=== PATIENT | male | born 1935 | race Caucasian/White ===

== ENCOUNTER → 2016-06-19 | Day surgery (SDC) | payer MEDICARE, BC ==
[~2016-06-19] MED LIST: LIDOCAINE HCL 1% MPF SOL ONE; TRIAMCINOLONE ACETONIDE 40 MG/ML SUS ONE
[2016-06-19 12:56] VITALS: PULSE 58; RESP 18
[2016-06-19 13:53] VITALS: BP 143/79; TEMP 97.4; O2SAT 93
== END | disposition home or self-care (01) | DRG 552 ==
LOC: SURG 12:16
PROVIDERS: ATTEND Nurse Anesthetist, Certified Registered
DX: M48.06 Spinal stenosis, lumbar region (principal)
CPT/HCPCS: J2001; J3300

== ENCOUNTER 2016-09-12 12:38 | Inpatient (IN) | payer MEDICARE, BC ==
[2016-09-12] MEDS ORDERED: ALBUTEROL NEB SOL 2.5MG/3ML 1 VIAL SOL NEB PRN (13:25)
[2016-09-12] MEDS: ALBUTEROL/IPRATROPIUM 1 VIAL SOL INH SCH ×2 (14:43→21:20)
[2016-09-12] MEDS: SOLUMEDROL 125 MG/2 ML 125 MG/2 ML PDS IV SCH ×2 (14:44→21:20)
[2016-09-12] MEDS: SODIUM CHLORIDE 0.9% FLUSH 10 ML SOL IV SCH ×3 (14:44→22:57)
[2016-09-12] MEDS: ENOXAPARIN 40 MG SOL SC SCH (15:32)
[2016-09-12] MEDS: AZITHROMYCIN 250 MG TAB PO SCH (15:32)
[2016-09-12] MEDS ORDERED: FUROSEMIDE 40 MG TAB PO SCH (21:00)
[2016-09-12] MEDS: METOPROLOL SUCCINATE 50 MG ER TAB PO SCH (21:21)
[2016-09-12] MEDS: LISINOPRIL 5 MG TAB PO SCH (21:21)
[2016-09-13] MEDS: ALBUTEROL/IPRATROPIUM 1 VIAL SOL INH SCH ×4 (02:26→20:46)
[2016-09-13] MEDS: SOLUMEDROL 125 MG/2 ML 125 MG/2 ML PDS IV SCH ×2 (02:26→08:34)
[2016-09-13] MEDS: SODIUM CHLORIDE 0.9% FLUSH 10 ML SOL IV SCH ×5 (02:28→22:26)
[2016-09-13 08:02] LABS: HEMATOCRIT 35 % (39-53); MEAN CORPUSCULAR HGB CONC 34.5 gm/dl (32.0-36.0)
[2016-09-13 08:04] LABS: CALCIUM 8.6 mg/dl (8.5-10.1); POTASSIUM 4.6 mMol/L (3.5-5.1)
[2016-09-13 08:11] LABS: MEAN CORPUSCULAR VOLUME 99 fL (80-100)
[2016-09-13] MEDS: ENOXAPARIN 40 MG SOL SC SCH (08:34)
[2016-09-13] MEDS: AZITHROMYCIN 250 MG TAB PO SCH (08:34)
[2016-09-13] MEDS: MULTIVITAMIN2 1 EA TAB PO SCH (08:35)
[2016-09-13] MEDS: POTASSIUM CHLORIDE 10 MEQ TER PO SCH (08:35)
[2016-09-13] MEDS: ALLOPURINOL 100 MG TAB PO SCH (08:35)
[2016-09-13] MEDS: ASPIRIN EC 81 MG PO SCH (08:35)
[2016-09-13 08:48] LABS: BASOPHILS % (MANUAL) 0 % (0-3); EOSINOPHILS % (MANUAL) 0 % (0-9); LYMPHOCYTES % (MANUAL) 11 % (10-50)
[2016-09-13 08:49] LABS: ANISOCYTOSIS SLIGHT AMT
[2016-09-13] MEDS ORDERED: DOCUSATE SODIUM 50 MG PO SCH (09:00)
[2016-09-13] MEDS ORDERED: FUROSEMIDE 40 MG TAB PO SCH (09:00)
[2016-09-13] MEDS: METOPROLOL SUCCINATE 50 MG ER TAB PO SCH (10:07)
[2016-09-13] MEDS: AMIODARONE 200 MG TAB PO SCH (10:07)
[2016-09-13] MEDS: LISINOPRIL 5 MG TAB PO SCH (10:07)
[2016-09-13] MEDS: PREDNISONE 20 MG TAB PO SCH (11:07)
[2016-09-13] MEDS: FUROSEMIDE 80 MG TAB PO SCH ×2 (11:07→15:02)
[2016-09-13] MEDS: DOCUSATE SODIUM 100 MG SGL PO SCH (11:11)
[2016-09-13] MEDS: ATORVASTATIN CALCIUM 80 MG TAB PO SCH (18:59)
[2016-09-14] MEDS: ALBUTEROL/IPRATROPIUM 1 VIAL SOL INH SCH ×4 (02:30→18:57)
[2016-09-14] MEDS: SODIUM CHLORIDE 0.9% FLUSH 10 ML SOL IV SCH ×2 (05:45→13:56)
[2016-09-14] MEDS: ASPIRIN EC 81 MG PO SCH (08:03)
[2016-09-14] MEDS: AMIODARONE 200 MG TAB PO SCH (08:04)
[2016-09-14] MEDS: FUROSEMIDE 80 MG TAB PO SCH ×2 (08:05→13:54)
[2016-09-14] MEDS: DOCUSATE SODIUM 100 MG SGL PO SCH (08:05)
[2016-09-14] MEDS: PREDNISONE 20 MG TAB PO SCH (08:05)
[2016-09-14] MEDS: POTASSIUM CHLORIDE 10 MEQ TER PO SCH (08:05)
[2016-09-14] MEDS: MULTIVITAMIN2 1 EA TAB PO SCH (08:05)
[2016-09-14] MEDS: METOPROLOL SUCCINATE 50 MG ER TAB PO SCH (08:06)
[2016-09-14] MEDS: LISINOPRIL 5 MG TAB PO SCH (08:06)
[2016-09-14] MEDS: AZITHROMYCIN 250 MG TAB PO SCH (08:06)
[2016-09-14] MEDS: ALLOPURINOL 100 MG TAB PO SCH (08:07)
[2016-09-14] MEDS: ENOXAPARIN 40 MG SOL SC SCH (08:08)
[2016-09-14 08:35] LABS: CALCIUM 8.8 mg/dl (8.5-10.1); POTASSIUM 4.1 mMol/L (3.5-5.1)
[2016-09-14 17:17] VITALS: BP 108/74; TEMP 98
[2016-09-14] MEDS: ATORVASTATIN CALCIUM 80 MG TAB PO SCH (17:18)
[2016-09-14 18:56] VITALS: O2SAT 92
[2016-09-14 18:58] VITALS: PULSE 78; RESP 26
== END 2016-09-14 19:40 | disposition home or self-care (01) | DRG 202 ==
LOC: ACUTE CARE 12:39
PROVIDERS: ADMIT Family Medicine; ATTEND Family Medicine
DX: J45.901 Unspecified asthma with (acute) exacerbation (principal); N17.9 Acute kidney failure, unspecified; G47.36 Sleep related hypoventilation in conditions classified elsewhere; I50.9 Heart failure, unspecified; I13.0 Hypertensive heart and chronic kidney disease with heart failure and stage 1 through stage 4 chronic kidney disease, or unspecified chronic kidney disease; N18.9 Chronic kidney disease, unspecified
CPT/HCPCS: 36415; 80048; 80053; 85007; 85027; 94150; 94640; 94664; 94760; J1650; J2930; J7620

== ENCOUNTER 2016-09-17 08:52 | Inpatient (IN) | payer MEDICARE, BC ==
[2016-09-17] MEDS ORDERED: ALBUTEROL/IPRATROPIUM 1 VIAL SOL INH ONE (09:30)
[2016-09-17 09:40] LABS: HEMATOCRIT 42 % (39-53); MEAN CORPUSCULAR HGB CONC 34.1 gm/dl (32.0-36.0)
[2016-09-17 09:44] LABS: MEAN CORPUSCULAR VOLUME 100 fL (80-100)
[2016-09-17] MEDS ORDERED: ALBUTEROL/IPRATROPIUM 1 VIAL SOL ONE (09:49)
[2016-09-17 09:51] LABS: ALBUMIN 3.4 gm/dl (3.4-5.0); CALCIUM 8.7 mg/dl (8.5-10.1); POTASSIUM 3.6 mMol/L (3.5-5.1)
[2016-09-17 09:52] LABS: BASOPHILS % (MANUAL) 0 % (0-3); EOSINOPHILS % (MANUAL) 0 % (0-9); LYMPHOCYTES % (MANUAL) 8 % (10-50); NORMAL RBCS PRESENT
[2016-09-17] MEDS ORDERED: PIPERACILLIN/TAZOBACT 3.375 GM PDS IV ONE ×3 (10:48→22:48)
[2016-09-17] MEDS: PIPERACILLIN/TAZOBACT 3.375 GM 3.375 GM in SODIUM CHLORIDE 0.9% 100 ML 100 ML IV SCH ×3 (11:00→22:56)
[2016-09-17] MEDS ORDERED: ALBUTEROL NEB SOL 2.5MG/3ML 1 VIAL SOL NEB PRN (11:24)
[2016-09-17 11:57] LABS: APPEARANCE,URINE Slightly Cloudy; BILIRUBIN,URINE NEGATIVE (NEGATIVE); COLOR,URINE Yellow; GLUCOSE, URINE (UA) NEGATIVE (NEGATIVE); KETONES,URINE NEGATIVE (NEGATIVE); LEUKOCYTE ESTERASE ,URINE NEGATIVE (NEGATIVE); NITRATE,URINE NEGATIVE (NEGATIVE); OCCULT BLOOD,URINE NEGATIVE (NEG-TRACE); PH,URINE 5.5; UROBILINOGEN,URINE 0.2 (0.2-1.0 EU)
[2016-09-17 12:00] LABS: RBC,URINE NEG (0-3AV/HPF)
[2016-09-17 12:01] LABS: WBC,URINE 0-2 (0-5AV/HPF)
[2016-09-17] MEDS: ALBUTEROL/IPRATROPIUM 1 VIAL SOL INH SCH ×3 (12:47→23:34)
[2016-09-17] MEDS ORDERED: SODIUM CHLORIDE 0.9% 100 ML 100 ML IV ONE ×2 (17:11→22:48)
[2016-09-17] MEDS: ATORVASTATIN CALCIUM 80 MG TAB PO SCH (18:11)
[2016-09-17] MEDS: METOPROLOL SUCCINATE 50 MG ER TAB PO SCH (20:52)
[2016-09-17] MEDS ORDERED: FUROSEMIDE 80 MG TAB PO SCH (21:00)
[2016-09-17] MEDS: SODIUM CHLORIDE 0.9% FLUSH 10 ML SOL IV SCH (23:34)
[2016-09-18] MEDS ORDERED: PIPERACILLIN/TAZOBACT 3.375 GM PDS IV ONE (05:48)
[2016-09-18] MEDS ORDERED: SODIUM CHLORIDE 0.9% 100 ML 100 ML IV ONE (05:48)
[2016-09-18] MEDS: PIPERACILLIN/TAZOBACT 3.375 GM 3.375 GM in SODIUM CHLORIDE 0.9% 100 ML 100 ML IV SCH (05:58)
[2016-09-18] MEDS: SODIUM CHLORIDE 0.9% FLUSH 10 ML SOL IV SCH ×3 (05:59→21:36)
[2016-09-18] MEDS: ALBUTEROL/IPRATROPIUM 1 VIAL SOL INH SCH ×3 (05:59→18:09)
[2016-09-18 07:24] LABS: CALCIUM 7.9 mg/dl (8.5-10.1)
[2016-09-18 07:37] LABS: BASOPHILS % (AUTO) 0 % (0-3); EOSINOPHILS % (AUTO) 3 % (0-9); HEMATOCRIT 35 % (39-53); NEUTROPHILS % (AUTO) 73.1 % (37-80)
[2016-09-18 07:40] LABS: MEAN CORPUSCULAR VOLUME 99 fL (80-100)
[2016-09-18] MEDS: AMIODARONE 200 MG TAB PO SCH (08:30)
[2016-09-18] MEDS: FUROSEMIDE 80 MG TAB PO SCH ×2 (08:31→13:28)
[2016-09-18] MEDS: ASPIRIN EC 81 MG PO SCH (08:31)
[2016-09-18] MEDS: ALLOPURINOL 100 MG TAB PO SCH (08:32)
[2016-09-18] MEDS: PREDNISONE 20 MG TAB PO SCH (08:34)
[2016-09-18] MEDS ORDERED: BUDESONIDE/FORMOTEROL 160/4.5 AER INH SCH (09:00)
[2016-09-18] MEDS ORDERED: DOCUSATE SODIUM 100 MG SGL PO SCH (09:00)
[2016-09-18] MEDS ORDERED: POTASSIUM CHLORIDE 10 MEQ TER PO SCH (09:00)
[2016-09-18] MEDS: METOPROLOL SUCCINATE 50 MG ER TAB PO SCH ×2 (09:15→10:09)
[2016-09-18] MEDS: AMOXIL/CLAVULANATE 400/5 ML PDR PO SCH ×2 (10:16→21:35)
[2016-09-18] MEDS: ATORVASTATIN CALCIUM 80 MG TAB PO SCH (18:08)
[2016-09-18] MEDS ORDERED: TAMSULOSIN HYDROCHLORIDE 0.4 MG CAP PO SCH (21:00)
[2016-09-18] MEDS: POTASSIUM CHLORIDE 10 MEQ TER PO SCH (21:35)
[2016-09-18] MEDS: BUDESONIDE/FORMOTEROL 160/4.5 AER INH SCH (21:36)
[2016-09-19] MEDS: ALBUTEROL/IPRATROPIUM 1 VIAL SOL INH SCH ×3 (00:58→11:44)
[2016-09-19] MEDS: SODIUM CHLORIDE 0.9% FLUSH 10 ML SOL IV SCH (06:35)
[2016-09-19 07:17] LABS: POTASSIUM 3.2 mMol/L (3.5-5.1)
[2016-09-19] MEDS: AMIODARONE 200 MG TAB PO SCH (08:23)
[2016-09-19] MEDS: ASPIRIN EC 81 MG PO SCH (08:24)
[2016-09-19] MEDS: PREDNISONE 20 MG TAB PO SCH (08:25)
[2016-09-19] MEDS: FUROSEMIDE 80 MG TAB PO SCH ×2 (08:25→13:21)
[2016-09-19] MEDS: METOPROLOL SUCCINATE 50 MG ER TAB PO SCH (08:26)
[2016-09-19] MEDS: BUDESONIDE/FORMOTEROL 160/4.5 AER INH SCH (08:27)
[2016-09-19] MEDS: POTASSIUM CHLORIDE 10 MEQ TER PO SCH (08:27)
[2016-09-19] MEDS: AMOXIL/CLAVULANATE 400/5 ML PDR PO SCH (08:28)
[2016-09-19] MEDS: ALLOPURINOL 100 MG TAB PO SCH (08:32)
[2016-09-19 10:32] VITALS: BP 117/64; TEMP 97
[2016-09-19 11:58] VITALS: PULSE 81; RESP 16; O2SAT 97
== END 2016-09-19 13:25 | disposition home or self-care (01) | DRG 190 ==
LOC: ED 08:52 → ACUTE CARE 10:50 → UNDOADMIN 10:50 → ACUTE CARE 11:43
PROVIDERS: ADMIT Family Medicine; ATTEND Family Medicine
PROC: 0T9B70Z Drainage of Bladder with Drainage Device, Via Natural or Artificial Opening (ICD-10-PCS; principal; 2016-09-18)
DX: R06.02 Shortness of breath (principal); J44.1 Chronic obstructive pulmonary disease with (acute) exacerbation; J44.9 Chronic obstructive pulmonary disease, unspecified; J18.9 Pneumonia, unspecified organism; N17.9 Acute kidney failure, unspecified; I13.0 Hypertensive heart and chronic kidney disease with heart failure and stage 1 through stage 4 chronic kidney disease, or unspecified chronic kidney disease; I50.9 Heart failure, unspecified; N18.3 Chronic kidney disease, stage 3 (moderate); J44.0 Chronic obstructive pulmonary disease with (acute) lower respiratory infection; R33.9 Retention of urine, unspecified; E78.5 Hyperlipidemia, unspecified; I25.10 Atherosclerotic heart disease of native coronary artery without angina pectoris; E87.6 Hypokalemia
CPT/HCPCS: 36415; 51798; 71020; 80048; 80053; 81001; 82565; 83880; 84132; 84484; 85007; 85025; 85027; 87040; 87070; 87205; 93005; 94150; 94640; 96365; 99222; 99291; J2543; J7620

== ENCOUNTER 2017-05-05 05:35 | Emergency (ER) | payer MEDICARE, BC ==
[2017-05-05] MEDS ORDERED: NITROGLYCERIN 0.4 MG TAB SL PRN (05:50)
[2017-05-05] MEDS ORDERED: ASPIRIN 81 MG CHEWABLE CTB PO STA (05:50)
[2017-05-05] MEDS ORDERED: SODIUM CHLORIDE 0.9% FLUSH 10 ML SOL IV PRN (05:50)
[2017-05-05 05:59] LABS: HEMATOCRIT 51 % (39-53); MEAN CORPUSCULAR HGB CONC 32.7 gm/dl (32.0-36.0); MEAN CORPUSCULAR VOLUME 95 fL (80-100)
[2017-05-05 06:11] LABS: CALCIUM 8.9 mg/dl (8.5-10.1); POTASSIUM 3.7 mMol/L (3.5-5.1)
[2017-05-05 06:14] LABS: BASOPHILS % (MANUAL) 0 % (0-3); EOSINOPHILS % (MANUAL) 0 % (0-9); LYMPHOCYTES % (MANUAL) 11 % (10-50); NORMAL RBCS PRESENT
[2017-05-05 06:38] VITALS: TEMP 98.4
[2017-05-05] MEDS ORDERED: ALBUTEROL/IPRATROPIUM 1 VIAL SOL INH ONE (06:47)
[2017-05-05] MEDS ORDERED: SOLUMEDROL 125 MG/2 ML 125 MG/2 ML PDS IV ONE (06:47)
[2017-05-05] MEDS ORDERED: ALBUTEROL/IPRATROPIUM 1 VIAL SOL ONE (06:49)
[2017-05-05] MEDS ORDERED: SOLUMEDROL 125 MG/2 ML 125 MG/2 ML PDS ONE (06:49)
[2017-05-05] MEDS ORDERED: ONDANSETRON HCL 4 MG/2 ML SOL IV ONE (06:50)
[2017-05-05] MEDS ORDERED: ONDANSETRON HCL 4 MG/2 ML SOL ONE (07:03)
[2017-05-05] MEDS ORDERED: SODIUM CHLORIDE 0.9% 500 ML 500 ML IV ONE ×2 (07:24→08:59)
[2017-05-05 08:37] LABS: APPEARANCE,URINE Clear; BILIRUBIN,URINE NEGATIVE (NEGATIVE); COLOR,URINE Yellow; GLUCOSE, URINE (UA) NEGATIVE (NEGATIVE); KETONES,URINE NEGATIVE (NEGATIVE); LEUKOCYTE ESTERASE ,URINE TRACE (NEGATIVE); NITRATE,URINE NEGATIVE (NEGATIVE); OCCULT BLOOD,URINE NEGATIVE (NEG-TRACE); PH,URINE 5.5; UROBILINOGEN,URINE 0.2 (0.2-1.0 EU)
[2017-05-05 09:03] LABS: RBC,URINE NEG (0-3AV/HPF); WBC,URINE 0-2 (0-5AV/HPF)
[2017-05-05] MEDS ORDERED: VANCOMYCIN HCL 500 MG PDS 1,000 MG in SODIUM CHLORIDE 0.9% 250 ML 250 ML IV ONE (09:07)
[2017-05-05] MEDS ORDERED: CEFTRIAXONE 1 GM PDS 2 GM in SODIUM CHLORIDE 0.9% 50 ML 50 ML IV ONE (09:07)
[2017-05-05] MEDS ORDERED: CEFTRIAXONE 1 GM PDS ONE (09:15)
[2017-05-05] MEDS ORDERED: VANCOMYCIN HYDROCHLORIDE 500 MG PDS IV ONE (09:26)
[2017-05-05] MEDS ORDERED: ENOXAPARIN 100 MG SOL SC ONE ×2 (09:55→10:26)
[2017-05-05] MEDS ORDERED: SODIUM CHLORIDE 0.9% 1000ML 1,000 ML IV SCH (10:00)
[2017-05-05 11:15] VITALS: BP 141/79; PULSE 113; RESP 20; O2SAT 95
== END 2017-05-05 10:40 | DRG 872 ==
LOC: ED 05:35
DX: A41.9 Sepsis, unspecified organism (principal); N19 Unspecified kidney failure; R06.00 Dyspnea, unspecified; R07.9 Chest pain, unspecified
CPT/HCPCS: 36415; 71045; 71250; 74176; 80053; 81001; 82550; 83880; 84484; 85007; 85027; 85378; 85610; 85730; 87040; 93005; 99285; J0696; J1650; J2405; J2930; J3370

== ENCOUNTER 2017-05-13 12:36 | Inpatient (IN) | payer MEDICARE, BC ==
[2017-05-13] MEDS ORDERED: ALBUTEROL NEB SOL 2.5MG/3ML 1 VIAL SOL NEB PRN (12:50)
[2017-05-13] MEDS ORDERED: SODIUM CHLORIDE 0.9% 50 ML 50 ML IV ONE (13:33)
[2017-05-13] MEDS ORDERED: CEFTRIAXONE 1 GM PDS ONE (13:33)
[2017-05-13] MEDS: ALBUTEROL/IPRATROPIUM 1 VIAL SOL INH SCH ×3 (13:40→20:23)
[2017-05-13] MEDS: SOLUMEDROL 125 MG/2 ML 125 MG/2 ML PDS IV SCH ×2 (13:43→18:33)
[2017-05-13] MEDS: AZITHROMYCIN 250 MG TAB PO SCH (13:48)
[2017-05-13] MEDS: CEFTRIAXONE 1 GM PDS 1 GM in SODIUM CHLORIDE 0.9% 50 ML 50 ML IV SCH (13:50)
[2017-05-13] MEDS ORDERED: FLUCONAZOLE 150 MG TAB PO SCH (14:00)
[2017-05-13] MEDS: POTASSIUM CHLORIDE 10 MEQ TER PO SCH ×2 (16:01→18:03)
[2017-05-13] MEDS: SODIUM CHLORIDE 0.9% FLUSH 10 ML SOL IV SCH ×3 (16:01→22:50)
[2017-05-13] MEDS ORDERED: WARFARIN SODIUM 1 MG TAB PO SCH (18:00)
[2017-05-13] MEDS: AMIODARONE 200 MG TAB PO SCH (18:02)
[2017-05-13] MEDS: ALLOPURINOL 100 MG TAB PO SCH (18:03)
[2017-05-13] MEDS: TAMSULOSIN HYDROCHLORIDE 0.4 MG CAP PO SCH (20:30)
[2017-05-13] MEDS: SENNOSIDES A AND B 8.6 MG TAB PO SCH (20:31)
[2017-05-13] MEDS ORDERED: POTASSIUM CHLORIDE 10 MEQ TER PO SCH (21:00)
[2017-05-13] MEDS ORDERED: FUROSEMIDE 40 MG TAB PO SCH (21:00)
[2017-05-14] MEDS: SOLUMEDROL 125 MG/2 ML 125 MG/2 ML PDS IV SCH ×4 (00:15→19:48)
[2017-05-14] MEDS: SODIUM CHLORIDE 0.9% FLUSH 10 ML SOL IV SCH ×7 (00:18→22:09)
[2017-05-14] MEDS: ALBUTEROL/IPRATROPIUM 1 VIAL SOL INH SCH ×6 (00:18→20:28)
[2017-05-14 06:59] LABS: CALCIUM 8.3 mg/dl (8.5-10.1); POTASSIUM 4.8 mMol/L (3.5-5.1)
[2017-05-14 07:20] LABS: BASOPHILS % (AUTO) 0 % (0-3); EOSINOPHILS % (AUTO) 0 % (0-9); HEMATOCRIT 41 % (39-53); MEAN CORPUSCULAR HGB CONC 33.2 gm/dl (32.0-36.0); MEAN CORPUSCULAR VOLUME 95 fL (80-100); MONOCYTES % (AUTO) 1.2 % (0-12); NEUTROPHILS % (AUTO) 89.8 % (37-80)
[2017-05-14] MEDS ORDERED: FUROSEMIDE 40 MG TAB PO SCH (08:00)
[2017-05-14] MEDS ORDERED: SODIUM CHLORIDE 0.9% 50 ML 50 ML IV ONE (08:41)
[2017-05-14] MEDS ORDERED: CEFTRIAXONE 1 GM PDS ONE (08:41)
[2017-05-14] MEDS: METOLAZONE 2.5 MG TABLET PO SCH (08:46)
[2017-05-14] MEDS: CEFTRIAXONE 1 GM PDS 1 GM in SODIUM CHLORIDE 0.9% 50 ML 50 ML IV SCH (08:46)
[2017-05-14] MEDS: METOPROLOL SUCCINATE 50 MG ER TAB PO SCH (08:46)
[2017-05-14] MEDS: SPIRONOLACTONE 25 MG TAB PO SCH (08:46)
[2017-05-14] MEDS: AZITHROMYCIN 250 MG TAB PO SCH (08:47)
[2017-05-14] MEDS ORDERED: POTASSIUM CHLORIDE 10 MEQ TER PO SCH (09:00)
[2017-05-14] MEDS ORDERED: WARFARIN SODIUM 1 MG TAB PO SCH (09:00)
[2017-05-14] MEDS: FLUCONAZOLE 100 MG TAB PO SCH (11:41)
[2017-05-14] MEDS: FUROSEMIDE 80 MG TAB PO SCH (14:30)
[2017-05-14] MEDS: AMIODARONE 200 MG TAB PO SCH (17:27)
[2017-05-14] MEDS: ALLOPURINOL 100 MG TAB PO SCH (17:28)
[2017-05-14] MEDS ORDERED: WARFARIN SODIUM 1 MG TAB PO ONE (18:00)
[2017-05-14] MEDS: SENNOSIDES A AND B 8.6 MG TAB PO SCH (20:27)
[2017-05-14] MEDS: TAMSULOSIN HYDROCHLORIDE 0.4 MG CAP PO SCH (20:27)
[2017-05-15] MEDS: ALBUTEROL/IPRATROPIUM 1 VIAL SOL INH SCH ×4 (01:31→13:46)
[2017-05-15] MEDS: SOLUMEDROL 125 MG/2 ML 125 MG/2 ML PDS IV SCH ×3 (01:31→13:49)
[2017-05-15] MEDS: SODIUM CHLORIDE 0.9% FLUSH 10 ML SOL IV SCH ×4 (01:33→15:00)
[2017-05-15 07:13] LABS: POTASSIUM 3.6 mMol/L (3.5-5.1)
[2017-05-15 07:24] LABS: HEMATOCRIT 39 % (39-53); MEAN CORPUSCULAR HGB CONC 34.3 gm/dl (32.0-36.0); MEAN CORPUSCULAR VOLUME 93 fL (80-100)
[2017-05-15 07:44] LABS: BASOPHILS % (MANUAL) 1 % (0-3); EOSINOPHILS % (MANUAL) 0 % (0-9); LYMPHOCYTES % (MANUAL) 3 % (10-50); NORMAL RBCS PRESENT
[2017-05-15 08:10] VITALS: BP 108/71; TEMP 97.5
[2017-05-15] MEDS: AZITHROMYCIN 250 MG TAB PO SCH (08:41)
[2017-05-15] MEDS: SPIRONOLACTONE 25 MG TAB PO SCH (08:42)
[2017-05-15] MEDS: METOPROLOL SUCCINATE 50 MG ER TAB PO SCH (08:42)
[2017-05-15] MEDS: FUROSEMIDE 80 MG TAB PO SCH ×2 (08:42→13:56)
[2017-05-15] MEDS: FLUCONAZOLE 100 MG TAB PO SCH (08:42)
[2017-05-15] MEDS: METOLAZONE 2.5 MG TABLET PO SCH (08:43)
[2017-05-15] MEDS ORDERED: SODIUM CHLORIDE 0.9% 50 ML 50 ML IV ONE (08:57)
[2017-05-15] MEDS ORDERED: CEFTRIAXONE 1 GM PDS ONE (08:57)
[2017-05-15] MEDS: CEFTRIAXONE 1 GM PDS 1 GM in SODIUM CHLORIDE 0.9% 50 ML 50 ML IV SCH (09:39)
[2017-05-15] MEDS ORDERED: PNEUMOC 13-VAL CONJ-DIP CRM/PF 0.5 ML SYRINGE IM ONE (10:11)
[2017-05-15 13:56] VITALS: PULSE 98; RESP 20; O2SAT 97
== END 2017-05-15 14:40 | disposition home or self-care (01) | DRG 194 ==
LOC: ACUTE CARE 12:36
PROVIDERS: ADMIT Family Medicine; ATTEND Family Medicine
DX: J18.9 Pneumonia, unspecified organism (principal); J44.1 Chronic obstructive pulmonary disease with (acute) exacerbation; I48.91 Unspecified atrial fibrillation; I50.9 Heart failure, unspecified; E87.6 Hypokalemia; Z79.01 Long term (current) use of anticoagulants; B35.8 Other dermatophytoses
CPT/HCPCS: 36415; 80048; 85007; 85025; 85027; 85610; 90670; 93012; 94150; 94640; 94664; J0696; J2930; A9270; A9270-GY; G0008